=== PATIENT | female | born 1990 | race Caucasian/White ===

== ENCOUNTER 2016-11-06 07:52 | Day surgery (SDC) | payer BC ==
[~2016-11-06 07:52] MED LIST: RINGERS SOLUTION,LACTATED 1,000 ML IV PRN
[2016-11-06] MEDS ORDERED: IBUPROFEN 800 MG TABLET PO ONE (09:08)
[2016-11-06] MEDS ORDERED: IBUPROFEN 800 MG TABLET PO SCH (09:15)
[2016-11-06] MEDS ORDERED: LIDOCAINE HCL 10 ML VIAL IJ ONE ×2 (09:35)
[2016-11-06] MEDS ORDERED: MORPHINE SULFATE 2 MG/ML DISP.SYRIN IV PRN (10:26)
--- NOTE | 2016-11-06 10:26 | OR ---
Operative Report - Dictated Report Narrative: DATE OF PROCEDURE: 11/06/2016 INDICATION: 25-year-old female at 12 weeks 1/7 gestation age presents for Chao cervical cerclage due to history of 20 week twin loss due to incompetent cervix. PREOPERATIVE DIAGNOSIS: Intrauterine 12 1/7 weeks, incompetent cervix POSTOPERATIVE DIAGNOSIS: Same PROCEDURE: Chao cervical cerclage SURGEON: Leigh Elizabeth D.O. ST[employer] FRAMES: OR staff ANESTHESIA: IV sedation with paracervical block using 1% lidocaine plain ESTIMATED BLOOD LOSS: Less than 5 mL URINE OUTPUT: Not recorded or measured FLUID REPLACEMENT: 400 mL of crystalloid FINDINGS: Large patulous cervix, live active fetus with heart tones 167 preoperatively and 158 bpm postoperatively. SPECIMEN(S): None TECHNIQUE: The patient was taken to the operating room and placed in dorsal lithotomy position after adequate IV sedation was obtained. 2 Serrano retractors were placed into the vagina to visualize the cervix which was grasped on the anterior and posterior lip with a long Allis clamp. A paracervical block was performed using a total of 14 mL of 1% lidocaine plain. Using a double needle 5 mm Mersilene suture, a pursestring stitch was placed through the cervix. The left needle was placed through the cervix at the 12 o'clock position and exiting at the 3 o'clock position then reentering approximately 1 cm below and exiting at the 6 o'clock position. The exact same was done with the right needle entering at the 12 o'clock position and exiting at 9:00 and reentering and exiting again finally at the 6 o'clock position. The knot was tied at the 6 o'clock position with just enough tension to prevent tear through or strangulation. The ends were left long to allow easy removal in the future. Each pass of the stitch was placed as proximally as possible while holding the cervix on tension, placing the stitch at the junction of smooth/rugated mucosa. Rectal exam was done at the end of the procedure to assure no sutures through the rectal mucosa. Minimal bleeding was noted and the patient tolerated the procedure well. Sponge, lap, instrument, and needle count correct x 2. DISPOSITION: The patient was transferred to postanesthesia care unit in good condition.
[2016-11-06] MEDS ORDERED: oxyCODONE HCL/ACETAMINOPHEN 1 TAB TABLET PO PRN (10:27)
[2016-11-06 11:53] VITALS: BP 114/61
== END 2016-11-06 07:53 | disposition home or self-care (01) ==
LOC: AMB 07:52
PROVIDERS: ATTEND Obstetrics & Gynecology
PROC: 0UVC7ZZ Restriction of Cervix, Via Natural or Artificial Opening (ICD-10-PCS; principal; 2016-11-06 09:00)
DX: O34.31 Maternal care for cervical incompetence, first trimester (principal); E66.01 Morbid (severe) obesity due to excess calories; Z68.42 Body mass index [BMI] 45.0-49.9, adult; Z3A.12 12 weeks gestation of pregnancy

== ENCOUNTER 2017-03-24 07:54 | Observation (INO) | payer BC, MEDICAID ==
[2017-03-24] MEDS ORDERED: BETAMETHASONE ACETATE,SOD PHOS 6 MG/ML VIAL IM STA (11:17)
[2017-03-24] MEDS ORDERED: PENICILLIN G POTASSIUM 5 MILLIONUNT in DEXTROSE 5 % IN WATER 100 ML IV ONE ×2 (11:59)
[2017-03-24] MEDS ORDERED: TERBUTALINE SULFATE 1 MG/ML VIAL SC ONE (11:59)
[2017-03-24] MEDS ORDERED: RINGER'S SOLUTION,LACTATED 1,000 ML IV PRN (11:59)
[2017-03-24] MEDS ORDERED: DEXTROSE 5%-LACTATED RINGERS 1,000 ML IV PRN (13:50)
[2017-03-24 13:51] LABS: Urine Bilirubin Negative (NEGATIVE); Urine Blood Negative /ul (NEGATIVE); Urine Ketone 50 mg/dL (NEGATIVE); Urine Nitrite Negative (NEGATIVE); Urine Protein Negative (NEGATIVE); Urine Specific Gravity 1.015 SP.GR. (1.005-1.010); Urine Urobilinogen Normal (NORMAL); Urine pH 6.5 pH (5.0-7.0)
[2017-03-24] MEDS: MAGNESIUM SULFATE IN WATER 50 ML, MAGNESIUM SULFATE IN WATER 50 ML IV ONE ×4 (13:56→14:19)
[2017-03-24] MEDS ORDERED: MAGNESIUM SULFATE IN WATER 1,000 ML IV SCH (14:00)
[2017-03-24 14:04] LABS: Cocaine Ur Negative (NEGATIVE); Urine Barbiturate Negative (NEGATIVE); Urine Benzodiazepines Negative (NEGATIVE); Urine Opiates Negative (NEGATIVE); Urine PCP Negative (NEGATIVE); Urine THC Negative (NEGATIVE)
[2017-03-24 14:15] LABS: Urine Appearance Slightly Cloudy; Urine Color Yellow
[2017-03-24 14:16] LABS: Urine Bacteria None Seen; Urine RBC None Seen /hpf (0-5); Urine WBC TRACE /hpf (0-5)
[2017-03-24] MEDS ORDERED: PENICILLIN G POTASSIUM 2.5 MILLIONUNT in DEXTROSE 5 % IN WATER 100 ML IV SCH ×4 (16:00→16:01)
[2017-03-25] MEDS ORDERED: BETAMETHASONE ACETATE,SOD PHOS 6 MG/ML VIAL IM ONE (11:00)
== END 2017-03-24 15:50 | disposition short-term general hospital (02) ==
LOC: OBCLINIC 07:54 → RAD 07:54 → OB 14:04
PROVIDERS: ADMIT Obstetrics & Gynecology; ATTEND Obstetrics & Gynecology
DX: O60.03 Preterm labor without delivery, third trimester (principal); O34.33 Maternal care for cervical incompetence, third trimester; O98.813 Other maternal infectious and parasitic diseases complicating pregnancy, third trimester; Z3A.32 32 weeks gestation of pregnancy; F41.8 Other specified anxiety disorders; E66.01 Morbid (severe) obesity due to excess calories; Z68.42 Body mass index [BMI] 45.0-49.9, adult
CPT/HCPCS: 59025; 76817; 80307; 81001; 87081; 96365; 96366; 96367; 96372; G0378

== ENCOUNTER 2019-06-11 20:00 | Inpatient (IN) ==
[2019-06-11] MEDS ORDERED: DEXTROSE 5%-LACTATED RINGERS 1,000 ML IV PRN (20:44)
[2019-06-11] MEDS ORDERED: RINGER'S SOLUTION,LACTATED 1,000 ML IV PRN (20:44)
[2019-06-11] MEDS ORDERED: OXYTOCIN/DEXTROSE 5%-WATER 30 UNITS/500 ML BAG IV ONE (20:45)
[2019-06-11] MEDS ORDERED: ONDANSETRON 4 MG TAB.RAPDIS PO PRN (21:18)
[2019-06-11 21:48] LABS: Cocaine Ur Negative (NEGATIVE); Urine Barbiturate Negative (NEGATIVE); Urine Benzodiazepines Negative (NEGATIVE); Urine Opiates Negative (NEGATIVE); Urine PCP Negative (NEGATIVE); Urine THC Negative (NEGATIVE)
[2019-06-12] MEDS ORDERED: BUPIVACAINE HCL/PF 30 ML VIAL EP SCH (05:30)
[2019-06-12] MEDS ORDERED: BUPIVACAINE HCL/0.9 % NACL/PF 250 ML EP PRN (05:30)
[2019-06-12] MEDS ORDERED: ONDANSETRON HCL/PF 2 MG/ML VIAL IV PRN (05:30)
[2019-06-12] MEDS ORDERED: NALOXONE HCL 1 MG/1 ML SYRG IV PRN (05:30)
--- NOTE | 2019-06-12 06:22 | ANES ---
Anesthesia Pre Procedure Eval Vitals/Labs: Last Vital Signs Temp 36.7 C 06/11/19 21:21 Pulse 78 06/11/19 21:21 Resp 18 06/11/19 21:21 BP 138/71 06/11/19 21:21 Pulse Ox 100 06/11/19 21:21 HOME MEDICATIONS ferrous sulfate 325 mg (65 mg iron) tablet 325 mg PO DAILY #30 tab 03/24/19 [Last Taken Unknown] ascorbic acid (vitamin C) 500 mg capsule mg PO 04/06/19 [Last Taken Unknown] Vits96/Iron Fum/Folic [ S] 1 tab PO DAILY 05/04/19 [Last Taken Unknown] Allergies/Adverse Reactions: Allergies Allergy/AdvReac Type Severity Reaction Status Date / Time No Known Drug Allergies Allergy Verified 06/11/19 20:43 Seasonal Allergies Allergy Rhinitis, Uncoded 06/11/19 20:43 sneezing - Planned Procedure Planned Procedure: labor epidural Medication List Reviewed:: Yes Allergies Verified: Yes Medical History (Last Reviewed 06/12/19 @ 06:21 by Elliot Reinoso CRNA) History of delivery, currently (Acute) NST does not show any contractions Major depression, recurrent (Acute) Depression screening (Acute) phq 9: 22 consistent with Severe Major Depressive Disorder Breast lump (Acute) Initially workup and rx was to evaluate or rule out most likely pathologies, which were cellulitis versus peau d'orange versus fibrocystic disease Establishing care with new doctor, encounter for (Acute) spontaneous labor with delivery (Resolved) Onset Date: Unknown Twin , mate liveborn (Resolved) Onset Date: Unknown Twin , mate stillborn (Resolved) Onset Date: Unknown Incompetence of cervix (Chronic) Onset Date: Unknown Mass of both axillae Onset Date: ~07/2018 Acne Onset Date: Unknown Arthritis Onset Date: Unknown BMI 45.0-49.9, adult Onset Date: 09/24/16 Body piercing Onset Date: Unknown Cervical insufficiency during , antepartum Onset Date: 04/18/16 20 wk PTD of twins Family history of diabetes mellitus (DM) Onset Date: 05/30/14 Fatigue Onset Date: 05/30/14 Frequent headaches Onset Date: Unknown Heartburn Onset Date: Unknown Hirsutism Onset Date: 05/30/14 Idiopathic scoliosis Onset Date: Unknown Morbid obesity Onset Date: 12/28/15 Wears glasses Onset Date: Unknown Anemia Onset Date: ~01/2017 w/pregnancies-2017 & 2019 Anxiety Onset Date: 12/28/15 no medications Bilateral knee pain Onset Date: 07/06/14 Depression Onset Date: 12/28/15 no medications History of condyloma acuminatum Pelvic pain Onset Date: 06/03/16 Plantar fasciitis Onset Date: 10/19/12 Polyhydramnios Onset Date: 03/2017 Premature delivery Onset Date: 04/04/17 03/23/16-Twin @ 20 wks. 04/04/17 @ 33 weeks Trichotillomania Onset Date: Unknown Twin dichorionic diamniotic placenta Onset Date: 12/28/15 Vulvovaginal candidiasis Onset Date: 06/03/16 fracture, closed Onset Date: Unknown broken left leg et left arm Surgical History (Last Reviewed 06/11/19 @ 21:33 by Racquel Kelly RN) Hx of needle biopsy Onset Date: ~07/2018 Right axillary mass-lymph node mirena IUD Onset Date: 04/04/17 placed at [facility] History of tonsillectomy Onset Date: 2010 approx. [id number] Hx of removal of cyst Onset Date: ~2008 left hand [place] teeth removed Onset Date: Unknown in college cerclage (cervical) Onset Date: 11/06/16 2017 & 2019 Family History (Last Reviewed 06/11/19 @ 21:33 by Racquel Kelly RN) Mother Diabetes Anxiety Depression cervical disc problems arthritis hands Father , age 65-prostate ca Diabetes Hypertension bad back two total knees Arthritis Obesity Gout CHF (congestive heart failure) Cancer prostate stage 4-dx age 65 Brother Obesity Hypertension Sister Anxiety Grandfather Diabetes Grandmother Breast cancer paternal-dx age 56 Grandfather , paternal Cancer paternal-prostate ca-dx age 75. Colon ca and leukemia Uncle Alcoholic Cirrhosis of liver Gout Aunt Hypertension joint issues - Anesthesia Assessment and Plan ASA Class: PS, III Anesthesia Type Plan: Epidural
--- NOTE | 2019-06-12 06:41 | ANES ---
Anesthesia Procedure Note Procedure Note: ANESTHESIA PROCEDURE NOTE Date of Procedure: 06/12/2019. Time of procedure: 624. Performed by: Elliot Reinoso CRNA Grocery Store Clerk: None. Preprocedure diagnosis: Active labor. Post procedure diagnosis: Same. Procedure: Insertion of labor epidural. Indications: The patient is a 28-year-old female in active labor requesting labor epidural for pain management. Findings: See below. Details of the procedure: The patient was placed in a sitting position. DuraPrep as well as Betadine swabs X3 was applied to the patient's back. Patient was then draped in a sterile fashion. Lidocaine 1% was infiltrated to the skin and subcutaneous tissues at the level of the L3-4 interspace. The epidural space was identified using a 18-gauge Tuohy needle with [id number] technique. Epidural catheter was inserted to a depth of 14 centimeters at skin. Negative test dose was elicited using 3 mL of 1.5% preservative-free lidocaine plus epinephrine 1 200,000. The epidural catheter was then taped and secured in place. A loading dose of 8 mL of 0.25% preservative-free bupivacaine was administered to the epidural catheter after negative aspiration for blood and CSF. EBL: Minimal. Fluids: N/A. Specimen: N/A. Post procedure condition: The patient tolerated the procedure well. No complications were noted. Thank you for this consultation. Elliot Reinoso CRNA
--- NOTE | 2019-06-12 06:42 | ANES ---
Post Anesthesia Assessment - Vital Signs Vitals: Last Vital Signs Temp 36.7 C 06/11/19 21:21 Pulse 78 06/11/19 21:21 Resp 18 06/11/19 21:21 BP 138/71 06/11/19 21:21 Pulse Ox 100 06/11/19 21:21 Airway Patency: Normal - Mental Status Level Of Consciousness: Awake - N/V Assessment Nausea/Vomiting Presence: None Dehydration:: No
--- NOTE | 2019-06-12 11:10 | HP ---
Chief Complaint - Chief Complaint Date of Service: 06/12/19 Time of Service: 10:52 Chief Complaint: Leaking fluid History of Present Illness: at 38 0/7 weeks presents with complaint of leaking of fluid at 1430 on 06/11/19. She has continued to leak since that time and was noted to have gross ROM upon presentation to L&D. Patient denies contractions, vaginal bleeding, and decreased movement. This complicated by anemia, anxiety/depression, incompetent cervix with twin loss, morbid obesity, and now PROM. Rh positive Rubella immune GBS negative Medical History (Last Reviewed 06/12/19 @ 11:04 by Aakash Elizabeth DO) History of delivery, currently (Acute) NST does not show any contractions Major depression, recurrent (Acute) Depression screening (Acute) phq 9: 22 consistent with Severe Major Depressive Disorder Breast lump (Acute) Initially workup and rx was to evaluate or rule out most likely pathologies, which were cellulitis versus peau d'orange versus fibrocystic disease Establishing care with new doctor, encounter for (Acute) spontaneous labor with delivery (Resolved) Onset Date: Unknown Twin , mate liveborn (Resolved) Onset Date: Unknown Twin , mate stillborn (Resolved) Onset Date: Unknown Incompetence of cervix (Chronic) Onset Date: Unknown Mass of both axillae Onset Date: ~07/2018 Acne Onset Date: Unknown Arthritis Onset Date: Unknown BMI 45.0-49.9, adult Onset Date: 09/24/16 Body piercing Onset Date: Unknown Cervical insufficiency during , antepartum Onset Date: 04/18/16 20 wk PTD of twins Family history of diabetes mellitus (DM) Onset Date: 05/30/14 Fatigue Onset Date: 05/30/14 Frequent headaches Onset Date: Unknown Heartburn Onset Date: Unknown Hirsutism Onset Date: 05/30/14 Idiopathic scoliosis Onset Date: Unknown Morbid obesity Onset Date: 12/28/15 Wears glasses Onset Date: Unknown Anemia Onset Date: ~01/2017 w/pregnancies-2016 & 2019 Anxiety Onset Date: 12/28/15 no medications Bilateral knee pain Onset Date: 07/06/14 Depression Onset Date: 12/28/15 no medications History of condyloma acuminatum Pelvic pain Onset Date: 06/03/16 Plantar fasciitis Onset Date: 10/19/12 Polyhydramnios Onset Date: 03/2017 Premature delivery Onset Date: 04/04/17 03/23/16-Twin @ 20 wks. 04/04/17 @ 33 weeks Trichotillomania Onset Date: Unknown Twin dichorionic diamniotic placenta Onset Date: 12/28/15 Vulvovaginal candidiasis Onset Date: 06/03/16 fracture, closed Onset Date: Unknown broken left leg et left arm Surgical History: Surgical History (Last Reviewed 06/11/19 @ 21:33 by Racquel Kelly RN) Hx of needle biopsy Onset Date: ~07/2018 Right axillary mass-lymph node mirena IUD Onset Date: 04/04/17 placed at [facility] History of tonsillectomy Onset Date: 2010 approx. [id number] Hx of removal of cyst Onset Date: ~2008 left hand [place] teeth removed Onset Date: [facility] [place] [facility] [facility]cervical) Onset Date: 11/06/16 2017 & 2018 Family History: Family History (Last Reviewed 06/11/19 @ 21:33 by Racquel Kelly RN) Mother Diabetes Anxiety Depression cervical disc problems arthritis hands Father , age 65-prostate ca Diabetes Hypertension bad back two total knees Arthritis Obesity Gout CHF (congestive heart failure) Cancer prostate stage 4-dx age 65 Brother Obesity Hypertension Sister Anxiety Grandfather Diabetes Grandmother Breast cancer paternal-dx age 56 Grandfather , paternal Cancer paternal-prostate ca-dx age 75. Colon ca and leukemia Uncle Alcoholic Cirrhosis of liver Gout Aunt Hypertension joint issues Social History: (Last Reviewed 06/11/19 @ 21:33 by Racquel Kelly RN) Social History: adopted: No detention: No Marital status: household members: spouse, children number of children: 1 current occupational status: employed current occupation: pre school teacher current occupational exposures/hazards: No Highest education level completed: Bachelor's degree Service: No Tobacco: Smoking Status: Never smoker Alcohol: alcohol intake: never alcohol intake frequency: holiday/special occasion Substance Use: substance use type: does not use Dietary Habits: caffeine: Yes caffeine comment: 2-3/day Exercise: frequency: other Personal Safety: victim of physical abuse: No victim of emotional abuse: No Review Of Systems (GEN) - Review of Systems Generalized/Overall Review: Present: No Symptoms Reported EENTM: Present: No Symptoms Reported Respiratory: Present: No Symptoms Reported Cardiac: Present: No Symptoms Reported Abdominal: Present: No Symptoms Reported Genitourinary: Present: Other - LOF 1430 clear Musculoskeletal: Present: No Symptoms Reported Neurological: Present: No Symptoms Reported Skin: Present: No Symptoms Reported Endocrine: Present: No Symptoms Reported Allergies/Adverse Reactions: Allergies Allergy/AdvReac Type Severity Reaction Status Date / Time No Known Drug Allergies Allergy Verified 06/11/19 20:43 Seasonal Allergies Allergy Rhinitis, Uncoded 06/11/19 20:43 sneezing Home Medications: HOME MEDICATIONS ferrous sulfate 325 mg (65 mg iron) tablet 325 mg PO DAILY #30 tab 03/24/19 [Last Taken Unknown] ascorbic acid (vitamin C) 500 mg capsule mg PO 04/06/19 [Last Taken Unknown] Vits96/Iron Fum/Folic [ S] 1 tab PO DAILY 05/04/19 [Last Taken Unknown] Exam - Exam Vital Signs: Vital Signs - Last Taken Temp 36.8 C 06/12/19 06:43 Pulse 90 06/12/19 06:43 Resp 20 06/12/19 06:43 BP 139/70 06/12/19 06:43 Pulse Ox 98 06/12/19 06:43 Constitutional: Present: Alert, Oriented x3, Cooperative ENT Exam: Present: hearing grossly normal Breasts: Present: Exam deferred Respiratory: Present: lungs clear, no respiratory distress Cardiovascular/Chest: Present: regular rate, rhythm Abdomen: Present: soft, nontender, no rebound tenderness, other - gravid /Rectal: Present: Other - cervix 2/50/-3 Extremity: Present: no calf tenderness, lower extremity edema Skin Exam: Present: normal color, warm/dry, no cyanosis Neurologic: Present: alert, normal mood/affect, oriented x 3 Appearance: Present: appropriate appearance, appropriate insight Eye contact: Present: cooperative, good eye contact Thoughts: Present: normal thought pattern Diagnostic Studies: Laboratory Results Urine Opiates Screen Negative (NEGATIVE) 06/11/19 20:44 Barbiturate Screen Negative (NEGATIVE) 06/11/19 20:44 Ur Phencyclidine Scrn Negative (NEGATIVE) 06/11/19 20:44 Urine Amphetamine Negative (NEGATIVE) 06/11/19 20:44 U Benzodiazepines Scrn Negative (NEGATIVE) 06/11/19 20:44 Urine Cocaine Screen Negative (NEGATIVE) 06/11/19 20:44 Urine Marijuana (THC) Negative (NEGATIVE) 06/11/19 20:44 Assessment/Plan - Assessment/Plan (1) Premature rupture of membranes Assessment: Admit for management of labor. Pitocin and epidural PRN. Problem: Acute Qualifiers: PROM onset of labor timing: onset of labor within 24 hours of rupture PROM gestational age: full term Qualified Code(s): O42.02 - Full-term premature rupture of membranes, onset of labor within 24 hours of rupture (2) Adult BMI 45.0-49.9 kg/sq m Problem: Acute (3) Major depression, recurrent Problem: Acute Qualifiers: Active/Remission status: in partial remission Qualified Code(s): F33.41 - Major depressive disorder, recurrent, in partial remission (4) Anxiety Problem: Acute Non Stress Test - Status NST: 06/11/19 Reason for NST: other - PROM, threatened labor Monitor Mode: External Acceleration: Present Variability: Moderate 6-25 bpm Baseline Heart Rate: 120 - Assessment Assessment & Plan: PROM, latent labor - Plan NST Plan: Admit to L&D
[2019-06-12] MEDS ORDERED: MISOPROSTOL 200 MCG TABLET RC ONE (11:50)
[2019-06-12 12:29] LABS: Venous Blood Gas HCO3 15.4 mmol/L (22.0-29.0); Venous Blood Gas pH 7.35 (7.32-7.43)
[2019-06-12] MEDS ORDERED: IBUPROFEN 800 MG TABLET PO PRN (12:32)
[2019-06-12] MEDS ORDERED: BISACODYL 10 MG SUPP.RECT RC PRN (12:32)
[2019-06-12] MEDS ORDERED: oxyCODONE HCL/ACETAMINOPHEN 1 TAB TABLET PO PRN (12:32)
[2019-06-12] MEDS ORDERED: SENNOSIDES 8.6 MG TABLET PO PRN (12:32)
[2019-06-12] MEDS ORDERED: OXYTOCIN/DEXTROSE 5%-WATER 30 UNITS/500 ML BAG IV ONE (12:32)
[2019-06-12] MEDS ORDERED: BENZOCAINE/MENTHOL 81 SPRAY CAN TP PRN (12:32)
[2019-06-12] MEDS ORDERED: HYDROCORTISONE 30 APPL TUBE TP PRN (12:32)
[2019-06-12] MEDS ORDERED: GLYCERIN/WITCH HAZEL LEAF 40 APPL BOX TP PRN (12:32)
--- NOTE | 2019-06-12 12:47 | OR ---
Operative Report - Dictated Report Narrative: Spontaneous vaginal delivery of vigorously crying viable male at 1139 on 06/12/2019 with Apgars 9 and 9, weighing 4283 g and RADHA position. Cord clamping delayed approximately 1 minute Placenta delivered complete, intact, with three vessel cord Estimated blood loss: 200 mL. Brisk bleeding responded to uterine massage with evacuation of clots, Pitocin 30 milliunits/min intravenously, and Cytotec 800 mcg rectally x1. Anesthesia: Epidural Lacerations: Second-degree vaginal laceration (3 cm) repaired with 3-0 Vicryl Rapide Infant was having deep variables and late decelerations in the last several minutes before delivery. Cord gases were obtained. Arterial pH 7.14, base excess -10.1 Venous PH 7.35, base excess -8.6 History for MU History for Definition: * The number of deliveries resulting in a live the patient experienced prior to current hospitalization * The previous delivery of live twins or any live multiple gestation is considered one live event. *If primagravida or nulliparous is documented select zero for the number of previous live births. Live Events: Live Events: 2
[2019-06-12] MEDS: IBUPROFEN 800 MG TABLET PO PRN (20:06)
[2019-06-13] MEDS: DOCUSATE SODIUM 100 MG CAPSULE PO SCH ×3 (00:55→21:17)
--- NOTE | 2019-06-13 08:59 | PN ---
Subjective - Date and Time Seen Date: 06/13/19 Time: 08:59 Objective - Vitals Vitals: Last Vital Signs Temp 36.7 C 06/13/19 07:19 Pulse 78 06/13/19 07:19 Resp 18 06/13/19 07:19 BP 113/63 06/13/19 07:19 Pulse Ox 100 06/13/19 07:19 Patient denies complaints. Lochia wnl abdomen - soft, nontender Uterus -firm, at umbilicus - 1 no calf tenderness Impression: day #1 - s/p spontaneous vaginal delivery. Plan: Continue routine care - Abnormal Lab Findings Abnormal Lab Findings: Abnormal Lab Results 06/12/19 06/12/19 Range/Units 11:45 11:45 pCO2 58.6 H 28.5 L (32.0-45.0) mmHg pO2 23.3 L* (83.0-108.0) mmHg HCO3 19.6 L 15.4 L (21.0-28.0) mmol/L Total CO2 16.3 L (22.0-26.0) mmol/L Base Excess -10.1 L -8.6 L (-2.0-3.0) mmol/L ABG pH 7.14 L* (7.35-7.45) ABG O2 Sat (Measured) 27.4 L (94.0-98.0) % VBG O2 Saturation 50.9 L (94.0-98.0) % Cauti Physician Documentation - Urinary Catheter Management Urethral (Cont[place]ras) Date of Insertion: 06/12/19 Time of Insertion: 07:15 Date of Removal: 06/12/19 Time of Removal: 11:30 Assessment/Plan - Problems/Diagnosis (1) Major depression, recurrent Problem: Acute Qualifiers: Active/Remission status: in partial remission Qualified Code(s): F33.41 - Major depressive disorder, recurrent, in partial remission (2) Anxiety Problem: Acute
[2019-06-13] MEDS: PRENATAL VITS96/IRON FUM/FOLIC 1 TAB TABLET PO SCH (09:08)
[2019-06-13] MEDS: IBUPROFEN 800 MG TABLET PO PRN ×2 (12:12→19:02)
[2019-06-13] MEDS: FERROUS SULFATE 325 MG TABLET PO SCH (16:49)
[2019-06-14] MEDS: DOCUSATE SODIUM 100 MG CAPSULE PO SCH (08:30)
[2019-06-14] MEDS: FERROUS SULFATE 325 MG TABLET PO SCH (08:30)
[2019-06-14] MEDS: PRENATAL VITS96/IRON FUM/FOLIC 1 TAB TABLET PO SCH (08:30)
[2019-06-14] MEDS: IBUPROFEN 800 MG TABLET PO PRN (08:32)
--- NOTE | 2019-06-14 08:50 | PN ---
Subjective - Date and Time Seen Date: 06/14/19 Time: 08:50 Objective - Vitals Vitals: Last Vital Signs Temp 36.8 C 06/14/19 07:14 Pulse 79 06/14/19 07:14 Resp 18 06/14/19 07:14 BP 112/61 06/14/19 07:14 Pulse Ox 98 06/14/19 07:14 Patient denies complaints. Lochia wnl abdomen - soft, nontender Uterus -firm, at umbilicus - 2 no calf tenderness Impression: day #2 - s/p spontaneous vaginal delivery. Plan: Routine discharge instructions Cauti Physician Documentation - Urinary Catheter Management Urethral (Contreras) Date of Insertion: 06/12/19 Time of Insertion: 07:15 Date of Removal: 06/12/19 Time of Removal: 11:30 Assessment/Plan - Problems/Diagnosis (1) Major depression, recurrent Problem: Acute Qualifiers: Active/Remission status: in partial remission Qualified Code(s): F33.41 - Major depressive disorder, recurrent, in partial remission (2) Anxiety Problem: Acute
[2019-06-14 19:06] VITALS: BP 120/63
== END 2019-06-14 20:20 | disposition home or self-care (01) | DRG 805 ==
LOC: OBCLINIC 20:00 → OB 20:07
PROVIDERS: ADMIT Obstetrics & Gynecology; ATTEND Obstetrics & Gynecology
CPT/HCPCS: 36415; 36416; 36600; 59025; 80307; 82803; 88307; 88888